=== PATIENT | male | born 1980 | race Caucasian/White ===

== ENCOUNTER 2017-08-07 02:13 | Emergency (ER) | payer OTHER ==
[~2017-08-07] VITALS: Ht 167.6 cm; Wt 131.8 kg
[2017-08-07 02:32] VITALS: Ht 167.6 cm; Wt 131.8 kg
[2017-08-07] MEDS ORDERED: KETOROLAC 60 MG INJ IM STA (04:41)
--- NOTE | 2017-08-07 05:02 | ERD ---
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 Patient describes the pain in the left neck area as sharp pain, 6/10 scale, radiates to the left shoulder, noted some muscle spasms in the left neck area. Patient denies any direct trauma in affected area. Patient denies any numbness or tingling. Patient is able to move the left neck area without any restriction. Patient denies any deformity. Patient did not take any medications to help with symptoms. ROS All systems reviewed and are negative except as per history of present illness. Medications Home Meds Reported Medications [none] Unknown Strength No Conflict Check 08/07/17 Allergies Allergies: Coded Allergies: No Known Allergy (Unverified , 08/07/17) PMhx/Soc Medical and Surgical Hx: pt denies Medical Hx, pt denies Surgical Hx Hx Alcohol Use: No Hx Substance Use: No Hx Tobacco Use: No Smoking Status: Never smoker FmHx Family History: No coronary disease, No diabetes, No other Physical Exam Vitals Vital Signs Date Time Temp Pulse Resp B/P Pulse Ox O2 Delivery O2 Flow Rate FiO2 08/07/17 02:32 97.9 94 20 174/106 99 Physical Exam GENERAL: The patient is well developed and appropriate for usual state of health, in no apparent distress. CHEST: Clear to auscultation bilaterally. There are no rales, wheezes or rhonchi. HEART: Regular rate and rhythm. No murmurs, clicks, rubs or gallops. No S3 or S4. ABDOMEN: Soft, nontender and nondistended. Good bowel sounds. No rebound or guarding. No gross peritonitis. No gross organomegaly or masses. No Barnes sign or McBurney point tenderness. BACK: No midline or flank tenderness. Noted muscle spasms on the left paraspinal aspect of the cervical spine, able to do full range of motion without any restriction. EXTREMITIES: Equal pulses bilaterally. There is no peripheral clubbing, cyanosis or edema. No focal swelling or erythema. Full range of motion. Grossly neurovascularly intact. NEURO: Alert and oriented. Cranial nerves 2-12 intact. Motor strength in all 4 extremities with 5/5 strength. Sensation grossly intact. Normal speech and gait. SKIN: There is no apparent rash or petechia. The skin is warm and dry. HEMATOLOGIC AND LYMPHATIC: There is no evidence of excessive bruising or lymphedema. No gross cervical, axillary, or inguinal lymphadenopathy. Results 24 hrs Current Medications Medications (Trade) Dose Ordered Sig/Elisha Route PRN Reason Start Time Stop Time Status Last Admin Dose Admin Ketorolac Tromethamine (Toradol) 60 mg ONCE STAT IM 08/07/17 04:41 08/07/17 04:42 DC 08/07/17 04:48 Patient was given medication for pain here in emergency department, after treatment, patient verbalized feeling much better. Patient's pain is improved. PROCEDURE: CT Cervical Spine without contrast. CLINICAL INDICATION: Neck pain TECHNIQUE: Routine axial tomographic images of the cervical spine with coronal and sagittal reformats were obtained without contrast. The CTDI = 22.31 mGy and the DLP = 596.49 mGy-cm. One or more of the following dose reduction techniques were used: Automated exposure control, adjustment of the mA and / or kV according to patient size, or use of iterative reconstruction technique. COMPARISON: No prior studies are available for comparison. FINDINGS: There is mild reversal of the normal cervical lordosis. There is normal height of the vertebral bodies. The intervertebral disc spaces appear normal. The cervical spinal cord shows no significant enlargement, or focal masses. There is no bony destruction or sclerosis. There is no dislocation or fracture. C2-3: There is no neuroforaminal narrowing. There is a 2 mm posterior disc bulge without central canal stenosis. C3-4: There is no neuroforaminal narrowing. There is 3 mm posterior disc bulge without central canal stenosis. C4-5: There is no neuroforaminal narrowing. There is a 3 mm posterior disc osteophyte complex without central canal stenosis. C5-6: There is no neuroforaminal narrowing. There is a 2 mm posterior disc osteophyte complex without central canal stenosis. C6-7: There is no neuroforaminal narrowing. There is a 3 mm posterior disc osteophyte complex with mild central canal stenosis. C7-T1: There is no neuroforaminal narrowing. There is no central canal stenosis. IMPRESSION: 1. Mild reversal of the normal cervical lordosis, possibly secondary to spasm. 2. Mild degenerative changes, as described above. RPTAT: HH .Mercedes Austin MD, Date Time Electronically viewed and signed by .Mercedes Austin MD, on 08/07/2017 05 :50 .G/ CC: VIOLET LARA NP Procedures/MDM Medical Decision Making: Patient's pain is most likely consistent with a neck strain w/ degenerative disc disease. There is no suspicion for neurovascular compromise. Patient has intact sensation and circulation of the distal affected extremity. There is low suspicion for septic arthritis. Patient does not have any fever. Radiology exams of the affected area does not show any fracture or dislocation. Disposition: Home. Patient is given prescription for ibuprofen for pain, [place] for severe pain, Flexeril for muscle spasms. Patient was advised to avoid heavy lifting upright warm compresses on the affected area.. Patient was advised that if symptoms are worse, numbness, tingling, high fever, unable to move joint, worsening symptoms, to return to emergency department immediately. Otherwise, patient is advised to follow up with the primary care doctor in 5-7 days for reevaluation of symptoms. Disclaimer: Inadvertent spelling and grammatical errors are likely due to EHR/ dictation software use and do not reflect on the overall quality of patient care. Also, please note that the electronic time recorded on this note does not necessarily reflect the actual time of the patient encounter. Departure Diagnosis: Primary Impression: Neck strain Encounter type: initial encounter Qualified Code: S16.1XXA - Strain of neck muscle, initial encounter Condition: Stable Patient Instructions: Neck Sprain/Strain VIOLET LARA NP Aug 07, 2017 05:02
--- NOTE | 2017-08-07 05:51 | RADRPT ---
PROCEDURE: CT Cervical Spine without contrast. CLINICAL INDICATION: Neck pain TECHNIQUE: Routine axial tomographic images of the cervical spine with coronal and sagittal reform ats were obtained without contrast. The CTDI = 22.31 mGy and the DLP = 596.49 mGy-cm. One or more o f the following dose reduction techniques were used: Automated exposure control, adjustment of the mA and / or kV according to patient size, or use of iterative reconstruction technique. COMPARISON: No prior studies are available for comparison. FINDINGS: There is mild reversal of the normal cervical lordosis. There is normal height of the vertebral bod ies. The intervertebral disc spaces appear normal. The cervical spinal cord shows no significant enl argement, or focal masses. There is no bony destruction or sclerosis. There is no dislocation or fra cture. C2-3: There is no neuroforaminal narrowing. There is a 2 mm posterior disc bulge without central can al stenosis. C3-4: There is no neuroforaminal narrowing. There is 3 mm posterior disc bulge without central canal stenosis. C4-5: There is no neuroforaminal narrowing. There is a 3 mm posterior disc osteophyte complex withou t central canal stenosis. C5-6: There is no neuroforaminal narrowing. There is a 2 mm posterior disc osteophyte complex withou t central canal stenosis. C6-7: There is no neuroforaminal narrowing. There is a 3 mm posterior disc osteophyte complex with mild central canal stenosis. C7-T1: There is no neuroforaminal narrowing. There is no central canal stenosis. IMPRESSION: 1. Mild reversal of the normal cervical lordosis, possibly secondary to spasm. 2. Mild degenerative changes, as described above. RPTAT: HH .Mercedes Austin MD, MD Date Time Electronically viewed and signed by .Mercedes Austin MD, on 08/07/2017 05:50 .G/
[2017-08-07] MEDS ORDERED: IBUP-1542 PO (05:56)
[2017-08-07] MEDS ORDERED: HYDR-906 PO (05:56)
[2017-08-07] MEDS ORDERED: CYCL-319 PO (05:56)
== END 2017-08-07 06:08 | disposition home or self-care (01) ==
LOC: FTE 02:13
DX: S16.1XXA Strain of muscle, fascia and tendon at neck level, initial encounter (principal); X50.9XXA Other and unspecified overexertion or strenuous movements or postures, initial encounter; Y92.89 Other specified places as the place of occurrence of the external cause
CPT/HCPCS: 72125; 96372; 99285; J1885